=== PATIENT | female | born 1935 | race Caucasian/White ===

== ENCOUNTER 2023-01-12 09:35 | Emergency (ER) | payer MEDICARE ==
[2023-01-12 11:02] LABS: APPEARANCE,URINE CLOUDY; BILIRUBIN,URINE NEGATIVE (NEGATIVE); COLOR,URINE YELLOW; GLUCOSE,URINE NEGATIVE (NEGATIVE); KETONES,URINE NEGATIVE (NEGATIVE); LEUKOCYTE ESTERASE,URINE MODERATE (NEGATIVE); NITRITE,URINE NEGATIVE (NEGATIVE); OCCULT BLOOD,URINE MODERATE (NEGATIVE); PH,URINE >= 9.0 (5.0-9.0); PROTEIN,URINE 100 mg/dL (NEGATIVE); UROBILINOGEN,URINE 0.2 E.U./dL (0.2-1.0)
[2023-01-12 11:12] LABS: BACTERIA,URINE MANY /HPF (NONE TO FEW); EPITHELIAL CELLS,URINE FEW /LPF; RBC,URINE 40-50 /HPF; WBC,URINE >100 /HPF
[2023-01-12 11:13] LABS: AMORPHOUS SEDIMENT,URINE MODERATE /HPF (0/HPF); OTHER CRYSTALS,URINE FEW /HPF
== END 2023-01-12 11:58 | disposition home or self-care (01) ==
LOC: LL.ED 09:35
DX: N39.0 Urinary tract infection, site not specified (principal); Z79.899 Other long term (current) drug therapy
CPT/HCPCS: 81001; 87086; 87088; 87186; 99283; 99284

== ENCOUNTER 2023-01-15 04:48 | Emergency (ER) | payer MEDICARE ==
[2023-01-15 05:46] LABS: BASOPHILS ABSOLUTE AUTO 0.03 K/uL (0.00-0.20); BASOPHILS PERCENT AUTO 0.4 % (0.0-2.0); EOSINOPHILS ABSOLUTE AUTO 0.13 K/uL (0.00-0.50); EOSINOPHILS PERCENT AUTO 1.7 % (0.0-5.0); HEMATOCRIT 48.4 % (34.0-46.0); HEMOGLOBIN 15.9 g/dL (11.7-15.5); LYMPHOCYTES ABSOLUTE AUTO 1.03 K/uL (0.50-3.50); LYMPHOCYTES PERCENT AUTO 13.9 % (10.0-50.0); MEAN CORPUSCULAR HEMOGLOBIN 29.6 pg (28.2-33.3); MEAN CORPUSCULAR HGB CONC 32.9 g/dL (31.7-36.0); MONOCYTES ABSOLUTE AUTO 0.96 K/uL (0.00-1.00); MONOCYTES PERCENT AUTO 12.9 % (2.0-14.0); NEUTROPHILS ABSOLUTE AUTO 5.28 K/uL (1.40-7.00); NEUTROPHILS PERCENT AUTO 71.1 % (45.0-80.0); PLATELET COUNT,PLT 336 K/uL (150-350); RED BLOOD CELL COUNT 5.38 M/uL (3.77-5.09); WHITE BLOOD CELL COUNT,WBC 7.4 K/uL (4.0-10.2)
[2023-01-15 05:56] LABS: APPEARANCE,URINE CLOUDY; BILIRUBIN,URINE NEGATIVE (NEGATIVE); COLOR,URINE YELLOW; GLUCOSE,URINE NEGATIVE (NEGATIVE); KETONES,URINE NEGATIVE (NEGATIVE); LEUKOCYTE ESTERASE,URINE SMALL (NEGATIVE); NITRITE,URINE POSITIVE (NEGATIVE); OCCULT BLOOD,URINE LARGE (NEGATIVE); PH,URINE 5.5 (5.0-9.0); PROTEIN,URINE 100 mg/dL (NEGATIVE); UROBILINOGEN,URINE 0.2 E.U./dL (0.2-1.0)
[2023-01-15 06:02] LABS: BACTERIA,URINE MODERATE /HPF (NONE TO FEW); EPITHELIAL CELLS,URINE MODERATE /LPF; MUCUS,URINE FEW /LPF (NEGATIVE); RBC,URINE 30-40 /HPF; WBC,URINE >100 /HPF
[2023-01-15 06:05] LABS: ALBUMIN 3.3 g/dL (3.4-5.0); ALKALINE PHOSPHATASE 98 IU/L (46-116); ANION GAP 8.9 meq/L (7-15); ASPARTATE AMNIOTRANSFERASE,AST 13 U/L (15-37); BILIRUBIN TOTAL 0.7 mg/dL (0.2-1.0); BLOOD UREA NITROGEN,BUN 43 mg/dL (7-18); CALCIUM 9.2 mg/dL (8.5-10.1); CARBON DIOXIDE,CO2 26.1 mmol/L (21.0-32.0); CHLORIDE,CL 102 mmol/L (98-107); CREATININE 1.05 mg/dL (0.51-1.17); GLUCOSE RANDOM 129 mg/dL (70-99); POTASSIUM,K 3.9 mmol/L (3.5-5.1); SODIUM,NA 137 mmol/L (136-145)
[2023-01-15 06:06] LABS: ESTIMATED GFR 52 mL/min (>=60)
[2023-01-15 06:26] LABS: ALANINE AMINOTRANSFERASE,ALT 5 U/L (12-78)
[2023-01-15] MEDS ORDERED: cefTRIAXone 1 GM, Lidocaine 1% 2.1 ML IM SCH ×2 (06:45)
== END 2023-01-15 07:10 | disposition home or self-care (01) ==
LOC: LL.ED 04:48
DX: N39.0 Urinary tract infection, site not specified (principal); E11.9 Type 2 diabetes mellitus without complications; I10 Essential (primary) hypertension; Z79.84 Long term (current) use of oral hypoglycemic drugs; Z79.899 Other long term (current) drug therapy
CPT/HCPCS: 36415; 80053; 81001; 85025; 96372; 99284; J0696; J3490